=== PATIENT | female | born 1995 | race Caucasian/White ===

== ENCOUNTER 2017-07-31 18:44 | Outpatient (CLI) | payer OTHER | END 2017-07-31 18:45 | disposition critical access hospital (66) | LOC: EMS 18:44 | PROVIDERS: ATTEND Surgery | DX: R40.20 Unspecified coma (principal) | CPT/HCPCS: A0425; A0427 ==

== ENCOUNTER 2017-07-31 19:06 | Emergency (ER) | payer OTHER ==
[2017-07-31] MEDS ORDERED: methylPREDNISolone SUCCINATE 125 MG/2 ML VIAL IVP STA (20:15)
--- NOTE | 2017-07-31 21:00 | ED Physician Documentation ---
PD HPI SKIN - Stated complaint Stated Complaint: ALLERGIC REACTION - Chief complaint Chief Complaint: Resp - History obtained from History obtained from: Patient, Friend - History of Present Illness Timing - onset: Today Timing - details: Abrupt onset, Now resolved Location: Abdomen Quality / character: Itchy Improved by: Benadryl, Epi Associated symptoms: Dyspnea, Abd pain Contributing factors: Exposed to food Similar symptoms before: Work up / diagnostics Recently seen: Not recently seen - Additional information Additional information: Patient is a 22 year old female who was brought to the emergency department after having an allergic reaction. 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 Patient states that she became short of breath and passed out. EMS was called and treated the patient with epinephrine and benadryl. Upon my initial evaluation in the emergency department patient stated that she was feeling much better and her symptoms had resolved. Review of Systems Constitutional: denies: Fever, Chills Eyes: denies: Photophobia Ears: reports: Reviewed and negative Nose: denies: Rhinorrhea / runny nose, Congestion Throat: denies: Sore throat Cardiac: denies: Chest pain / pressure, Palpitations Respiratory: denies: Wheezing GI: reports: Nausea. denies: Vomiting, Constipation, Diarrhea : reports: Reviewed and negative Skin: denies: Rash, Lesions Musculoskeletal: reports: Reviewed and negative Neurologic: reports: Syncope, LOC Immunocompromised: denies: Immunocompromised PD PAST MEDICAL HISTORY - Past Surgical History Past Surgical History: No - Present Medications Home Medications: Ambulatory Orders Medication Instructions Recorded Confirmed Epinephrine [Epipen 2-Jr] 0.3 mg IJ ONCE PRN #2 auto.injct 07/31/17 predniSONE [Prednisone] 40 mg PO DAILY 5 Days tablet 07/31/17 - Allergies Allergies/Adverse Reactions: Allergies Allergy/AdvReac Type Severity Reaction Status Date / Time pineapple Allergy Severe Anaphylaxis Verified 07/31/17 19:13 - Social History Does the pt smoke?: No Smoking Status: Never smoker Does the pt drink ETOH?: Yes Does the pt have substance abuse?: No PD ED PE NORMAL - Vitals Vital signs reviewed: Yes - General General: Alert and oriented X 3, No acute distress - HEENT HEENT: Atraumatic, PERRL, Moist mucous membranes, Pharynx benign, Other (no soft palate swelling) - Neck Neck: Supple, no meningeal sign - Cardiac Cardiac: No murmur - Respiratory Respiratory: No respiratory distress, Clear bilaterally - Abdomen Abdomen: Soft, Non tender, Non distended - Derm Derm: Normal color, Warm and dry, No rash - Extremities Extremities: No deformity - Neuro Neuro: Alert and oriented X 3, No motor deficit, No sensory deficit, Normal speech Eye Opening: Spontaneous Motor: Obeys Commands Verbal: Oriented GCS Score: 15 - Psych Psych: Normal mood PD ED PE EXPANDED - Cardiac Cardiac: Tachy Results - Vitals Vitals: Vital Signs - 24 hr 07/31/17 07/31/17 07/31/17 19:09 20:00 20:40 Temperature 36.4 C L Heart Rate 120 H 78 76 Respiratory 24 15 14 Rate Blood Pressure 123/70 111/70 103/68 O2 Saturation 97 100 97 07/31/17 21:08 Temperature 36.8 C Heart Rate 80 Respiratory 18 Rate Blood Pressure 108/74 O2 Saturation 97 Oxygen O2 Source Room air PD MEDICAL DECISION MAKING - ED course Complexity details: reviewed old records, reviewed results, re-evaluated patient , considered differential, d/w patient ED course: Patient was seen and examined at bedside. Patient's symptoms had resolved. Patient was treated with solumedrol. Due to the fact that patient had received epinephrine patient was observed in the emergency department for 2 hours. Patient remained asymptomatic while she was here and was stable for discharge with outpatient follow up. Departure - Departure Disposition: 01 Home, Self Care Clinical Impression: Allergic reaction Condition: Stable Instructions: ED Allergic Reaction General Other Follow-Up: primary,care provider [Other] - Tomorrow Prescriptions: Epinephrine [Epipen 2-Jr] 0.3 mg IJ ONCE PRN #2 auto.injct PRN Reason: Allergy Symptoms predniSONE [Prednisone] 40 mg PO DAILY 5 Days tablet Comments: Your symptoms today were caused by an allergic reaction. In your situation they can be life threatening so it is important that you carry an epi pen with you. For lesser reactions you can take benadryl, pepcid and the prescribed steroids. You should follow up with your doctor and an pastry assistant to determine what all you are allergic to so that you can avoid them. You may return to the emergency department at any time for new, worsening or uncontrollable symtpoms. Forms: Activity restrictions Discharge Date/Time: 07/31/17 21:12
[2017-07-31 21:08] VITALS: BP 108/74
== END 2017-07-31 21:12 | disposition home or self-care (01) ==
LOC: ED 19:06
DX: T78.1XXA Other adverse food reactions, not elsewhere classified, initial encounter (principal); X58.XXXA Exposure to other specified factors, initial encounter; Z91.018 Allergy to other foods
CPT/HCPCS: 96374; 99284

== ENCOUNTER 2018-03-31 20:48 | Emergency (ER) | payer OTHER ==
[2018-03-31] MEDS ORDERED: predniSONE 20 MG TABLET PO STA (21:11)
--- NOTE | 2018-03-31 21:13 | ED Physician Documentation ---
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 Around 8:25 PM she ate some beef jerky that she did not know contained pineapple and relatively quickly developed a feeling of throat swelling and facial warmth. She injected her EpiPen at 830 and feels back to normal.) Review of Systems Constitutional: denies: Fever, Chills Cardiac: denies: Chest pain / pressure, Palpitations Respiratory: denies: Dyspnea, Cough PD PAST MEDICAL HISTORY - Past Surgical History Past Surgical History: No - Present Medications Home Medications: Ambulatory Orders Medication Instructions Recorded Confirmed Epinephrine [Epipen 2-Jr] 0.3 mg IJ ONCE PRN #2 auto.injct 07/31/17 EPINEPHrine [Epinephrine] 0.3 mg IJ ONCE PRN #2 auto.injct 03/31/18 predniSONE [Prednisone] 60 mg PO DAILY 5 Days #15 tablet 03/31/18 - Allergies Allergies/Adverse Reactions: Allergies Allergy/AdvReac Type Severity Reaction Status Date / Time pineapple Allergy Severe Anaphylaxis Verified 03/31/18 20:57 - Social History Does the pt smoke?: No Smoking Status: Never smoker Does the pt drink ETOH?: Yes Does the pt have substance abuse?: No PD ED PE NORMAL - Vitals Vital signs reviewed: Yes - General General: Alert and oriented X 3, No acute distress - HEENT HEENT: Pharynx benign - Neck Neck: Supple, no meningeal sign, No bony TTP - Cardiac Cardiac: RRR, No murmur - Respiratory Respiratory: No respiratory distress, Clear bilaterally - Derm Derm: No rash - Neuro Neuro: Alert and oriented X 3, Normal speech Results - Vitals Vitals: Vital Signs - 24 hr 03/31/18 20:50 Temperature 36.7 C Heart Rate 107 H Respiratory 18 Rate Blood Pressure 131/75 H O2 Saturation 98 Oxygen O2 Source Room air PD MEDICAL DECISION MAKING - ED course ED course: 22-year-old woman with mild anaphylaxis after epinephrine at home. She was observed for a couple of hours after dose of steroids here without any recurrent symptoms and her EpiPen's were refilled. - Sepsis Event Vital Signs: Vital Signs - 24 hr 03/31/18 20:50 Temperature 36.7 C Heart Rate 107 H Respiratory 18 Rate Blood Pressure 131/75 H O2 Saturation 98 Oxygen O2 Source Room air Departure - Departure Disposition: 01 Home, Self Care Clinical Impression: Allergic reaction Qualifiers: Encounter type: initial encounter Qualified Code(s): T78.40XA - Allergy, unspecified, initial encounter Condition: Good Record reviewed to determine appropriate education?: Yes Instructions: ED Anaphylaxis General Prescriptions: EPINEPHrine [Epinephrine] 0.3 mg IJ ONCE PRN #2 auto.injct PRN Reason: Allergy Symptoms predniSONE [Prednisone] 60 mg PO DAILY 5 Days #15 tablet Comments: Your blood pressure was elevated today on check into the emergency department. This does not mean that you have hypertension, it is a common phenomenon to come to the emergency department and have elevated blood pressure. I recommend that you see your primary care physician within the week to have it rechecked when you are feeling better. Forms: Activity restrictions
[2018-03-31 22:19] VITALS: BP 119/66
== END 2018-03-31 22:24 | disposition home or self-care (01) ==
LOC: ED 20:48
DX: T78.1XXA Other adverse food reactions, not elsewhere classified, initial encounter (principal); X58.XXXA Exposure to other specified factors, initial encounter; R22.9 Localized swelling, mass and lump, unspecified; R23.2 Flushing
CPT/HCPCS: 99283; J7512

== ENCOUNTER 2018-08-26 19:51 | Emergency (ER) | payer OTHER ==
[2018-08-26] MEDS ORDERED: DEXAMETHASONE 10 MG/ML VIAL PO STA (20:13)
[2018-08-26] MEDS ORDERED: diphenhydrAMINE 25 MG CAPSULE PO STA (20:13)
[2018-08-26] MEDS ORDERED: FAMOTIDINE 20 MG TABLET PO STA (20:14)
[2018-08-26] MEDS ORDERED: CHERRY SYRUP 10 ML UDC PO ONE (20:21)
--- NOTE | 2018-08-26 20:37 | ED Physician Documentation ---
PD HPI SKIN - Stated complaint Stated Complaint: ALLERGIC REACTION/EPI PEN USED - Chief complaint Chief Complaint: Allergic Rx - History obtained from History obtained from: Patient - History of Present Illness Timing - onset: How many hours ago Timing - duration: Hours (1) Timing - details: Abrupt onset Pain level max: 0 Pain level now: 0 Severity Comments: moderate Location: Neck Quality / character: Itchy, Swelling Improved by: Epi Associated symptoms: Other (difficulty swallowing) Contributing factors: Exposed to food (Pineapple) Review of Systems Ten Systems: 10 systems reviewed and negative Constitutional: reports: Reviewed and negative Eyes: reports: Reviewed and negative Ears: reports: Reviewed and negative Nose: reports: Reviewed and negative Throat: reports: Reviewed and negative Cardiac: reports: Reviewed and negative Respiratory: reports: Reviewed and negative GI: reports: Reviewed and negative : reports: Reviewed and negative Skin: reports: Reviewed and negative Musculoskeletal: reports: Reviewed and negative Neurologic: reports: Reviewed and negative Psychiatric: reports: Reviewed and negative Endocrine: reports: Reviewed and negative Immunocompromised: reports: Reviewed and negative PD PAST MEDICAL HISTORY - Past Medical History Past Medical History: Yes Cardiovascular: Other Respiratory: None Neuro: None Endocrine/Autoimmune: None GI: None 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 : None HEENT: None Psych: None Musculoskeletal: None Derm: None Other Past Medical History: palpatations - Past Surgical History Past Surgical History: No - Present Medications Home Medications: Ambulatory Orders Medication Instructions Recorded Confirmed EPINEPHrine [Epipen 2-Jr] 0.3 mg IJ ONCE PRN #2 auto.injct 07/31/17 EPINEPHrine [Epinephrine] 0.3 mg IJ ONCE PRN #2 auto.injct 03/31/18 predniSONE [Prednisone] 60 mg PO DAILY 5 Days #15 tablet 03/31/18 EPINEPHrine [Epinephrine] 0.3 mg IJ ONCE PRN #2 auto.injct 08/26/18 - Allergies Allergies/Adverse Reactions: Allergies Allergy/AdvReac Type Severity Reaction Status Date / Time pineapple Allergy Severe Anaphylaxis Verified 08/26/18 20:19 - Social History Does the pt smoke?: No Smoking Status: Never smoker Does the pt drink ETOH?: Yes Does the pt have substance abuse?: No - Immunizations Immunizations are current?: Yes - POLST Patient has POLST: No PD ED PE NORMAL - Vitals Vital signs reviewed: Yes - General General: Alert and oriented X 3, No acute distress - HEENT HEENT: PERRL - Neck Neck: Supple, no meningeal sign - Cardiac Cardiac: RRR, No murmur - Respiratory Respiratory: Clear bilaterally - Abdomen Abdomen: Normal bowel sounds, Soft, Non tender, Non distended - Derm Derm: Warm and dry - Extremities Extremities: No deformity - Neuro Neuro: Alert and oriented X 3 - Psych Psych: Normal mood, Normal affect Results - Vitals Vitals: Vital Signs - 24 hr 08/26/18 19:57 Temperature 36.5 C Heart Rate 103 H Respiratory 18 Rate Blood Pressure 134/55 H O2 Saturation 100 Oxygen O2 Source Room air PD MEDICAL DECISION MAKING - ED course Complexity details: re-evaluated patient, considered differential, d/w patient, d/w family ED course: 23-year-old female with allergic reaction to pineapple. Patient observed in the emergency department for 1 hour and asked to discharge home. Patient recommended to be observed for 4 hours but she prefers to discharge and will call 911 with any worsening symptoms. Patient verbalizes risks of discharging prematurely including or permanent disability. Patient given prescription for EpiPen. Departure - Departure Disposition: 01 Home, Self Care Clinical Impression: Allergic reaction Qualifiers: Encounter type: initial encounter Qualified Code(s): T78.40XA - Allergy, unspecified, initial encounter Condition: Stable Instructions: ED Allergic Reaction General Other Follow-Up: Zafar Hair ARNP [Primary Care Provider] - Prescriptions: EPINEPHrine [Epinephrine] 0.3 mg IJ ONCE PRN #2 auto.injct PRN Reason: Difficulty breathing
[2018-08-26 21:18] VITALS: BP 108/62
== END 2018-08-26 21:18 | disposition home or self-care (01) ==
LOC: ED 19:51
DX: T78.1XXA Other adverse food reactions, not elsewhere classified, initial encounter (principal); X58.XXXA Exposure to other specified factors, initial encounter; R22.1 Localized swelling, mass and lump, neck; R13.10 Dysphagia, unspecified
CPT/HCPCS: 99283; A9270

== ENCOUNTER 2018-12-27 03:20 | Emergency (ER) | payer OTHER ==
[2018-12-27 03:28] VITALS: BP 123/72
[2018-12-27] MEDS ORDERED: DEXAMETHASONE 10 MG/ML VIAL PO STA (03:44)
[2018-12-27] MEDS ORDERED: CHERRY SYRUP 10 ML UDC PO ONE (03:44)
[2018-12-27] MEDS ORDERED: HYDROcod/ACETAM 5/325 MG TABLET PO STA (03:44)
[2018-12-27] MEDS ORDERED: ONDANSETRON ODT 4 MG TABLET TL STA (03:44)
[2018-12-27] MEDS ORDERED: NAPROXEN 250 MG TABLET PO STA (03:44)
--- NOTE | 2018-12-27 03:44 | ED Physician Documentation ---
PD HPI URI - Stated complaint Stated Complaint: SORE THROAT/CHILLS - Chief complaint Chief Complaint: Heent - History obtained from History obtained from: Patient - History of Present Illness Timing - onset: How many days ago (2) Timing duration: Days (2) Timing details: Abrupt onset, Still present Associated symptoms: Fever, Chills, Sore throat, Swollen nodes, Dry cough, Other (body aches). No: Dyspnea, NVD Contributing factors: Sick contact (coworkers with similar symptoms) Improves by: Other (has not taken any meds for it) Similar symptoms before: Has not had sx before Recently seen: Not recently seen Review of Systems Constitutional: reports: Fever, Chills, Myalgias Nose: reports: Congestion. denies: Rhinorrhea / runny nose, Sinus pressure / pain Throat: reports: Sore throat. denies: Oral lesions / sores, Swollen tonsils Cardiac: denies: Chest pain / pressure Respiratory: reports: Dyspnea, Cough. denies: Wheezing GI: reports: Nausea, Diarrhea (2 days ago). 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 : None HEENT: None Psych: None Musculoskeletal: None Derm: None - Past Surgical History Past Surgical History: No - Present Medications Home Medications: Ambulatory Orders Medication Instructions Recorded Confirmed EPINEPHrine [Epipen 2-Jr] 0.3 mg IJ ONCE PRN #2 auto.injct 07/31/17 EPINEPHrine [Epinephrine] 0.3 mg IJ ONCE PRN #2 auto.injct 03/31/18 predniSONE [Prednisone] 60 mg PO DAILY 5 Days #15 tablet 03/31/18 EPINEPHrine [Epinephrine] 0.3 mg IJ ONCE PRN #2 auto.injct 08/26/18 Naproxen 375 mg PO BID #20 tablet 12/27/18 Ondansetron Odt [Zofran] 4 mg TL Q6H PRN #10 tablet 12/27/18 Tramadol HCl 50 mg PO Q6H PRN #15 tablet 12/27/18 dexAMETHasone [Decadron] 4 mg PO DAILY #5 tablet 12/27/18 - Allergies Allergies/Adverse Reactions: Allergies Allergy/AdvReac Type Severity Reaction Status Date / Time pineapple Allergy Severe Anaphylaxis Verified 12/27/18 03:27 - Social History Does the pt smoke?: No Smoking Status: Never smoker Does the pt drink ETOH?: Yes Does the pt have substance abuse?: No - Immunizations Immunizations are current?: Yes - POLST Patient has POLST: No PD ED PE NORMAL - Vitals Vital signs reviewed: Yes - General General: Alert and oriented X 3, Well developed/nourished - HEENT HEENT: Moist mucous membranes, Pharynx benign - Neck Neck: Supple, no meningeal sign. No: No adenopathy (mild right anterior neck) - Cardiac Cardiac: RRR, No murmur - Respiratory Respiratory: Clear bilaterally - Abdomen Abdomen: Soft, Non tender - Derm Derm: Normal color, Warm and dry - Neuro Neuro: Alert and oriented X 3, No motor deficit, Normal speech Results - Vitals Vitals: Vital Signs - 24 hr 12/27/18 03:26 Temperature 36.3 C L Heart Rate 119 H Respiratory 16 Rate Blood Pressure 123/72 O2 Saturation 100 Oxygen O2 Source Room air - Labs Labs: Laboratory Tests 12/27/18 03:20 Group A Strep Rapid Negative Departure - Departure Disposition: 01 Home, Self Care Clinical Impression: Upper respiratory infection Qualifiers: URI type: unspecified URI Qualified Code(s): J06.9 - Acute upper respiratory infection, unspecified Condition: Stable Record reviewed to determine appropriate education?: Yes Health Concerns: sore throat/ fever Plan of Treatment: anti-inflammatories and pain meds Care Goals: improve symptoms Assessment: Presume viral URI Instructions: ED Upper Resp Infec No Abx Tx Follow-Up: Zafar Hair ARNP [Primary Care Provider] - Prescriptions: dexAMETHasone [Decadron] 4 mg PO DAILY #5 tablet Naproxen 375 mg PO BID #20 tablet Ondansetron Odt [Zofran] 4 mg TL Q6H PRN #10 tablet PRN Reason: Nausea / Vomiting Tramadol HCl 50 mg PO Q6H PRN #15 tablet PRN Reason: Pain Comments: Rapid strep test is negative. Presume a viral illness. Will call you if the cultures shows bacterial growth in the next 2 to 3 days. Meanwhile use some anti-inflammatory such as naproxen. Add Decadron steroid for inflammation as well. Ondansetron if needed for nausea. Tylenol and/or tramadol if needed for pains. Stay well-hydrated. Presume will be you will be ill for 5 to 7 days but hopefully less. Forms: Activity restrictions
== END 2018-12-27 04:10 | disposition home or self-care (01) ==
LOC: ED 03:20
DX: J06.9 Acute upper respiratory infection, unspecified (principal)
CPT/HCPCS: 87070; 87430; 99283; A9270; Q0162

== ENCOUNTER 2019-05-15 09:02 | Emergency (ER) | payer OTHER ==
[2019-05-15 10:41] LABS: BILIRUBIN,URINE NEGATIVE (NEGATIVE); GLUCOSE, URINE (UA) NEGATIVE (NEGATIVE); KETONES,URINE (UA) NEGATIVE (NEGATIVE); LEUKOCYTE ESTERASE, URINE NEGATIVE (NEGATIVE); NITRITE,URINE NEGATIVE (NEGATIVE); OCCULT BLOOD,URINE TRACE-LYSE (NEGATIVE); PROTEIN,URINE NEGATIVE (NEGATIVE); UROBILINOGEN,URINE 0.2 (NORMAL) E.U./dL (NORMAL)
[2019-05-15 10:43] LABS: BASOPHILS # (AUTO) 0.1 10^3/uL (0.0-0.1); BASOPHILS % (AUTO) 0.8 %; EOSINOPHILS % (AUTO) 0.4 %; HGB - HEMOGLOBIN 13.2 g/dL (12.0-16.0); LYMPHOCYTES % (AUTO) 23.4 %; MEAN CORPUSCULAR HEMOGLOBIN 30.7 pg (27.0-31.0); MEAN CORPUSCULAR HGB CONC 32.9 g/dL (32.0-36.0); MEAN CORPUSCULAR VOLUME 93.3 fL (81.0-99.0); MEAN PLATELET VOLUME 11.3 fL (7.9-10.8); MONOCYTES # (AUTO) 0.6 10^3/uL (0.0-1.0); MONOCYTES % (AUTO) 6.7 %; NEUTROPHILS # (AUTO) 5.9 10^3/uL (1.5-6.6); NEUTROPHILS % (AUTO) 68.3 %; PLT - PLATELET COUNT 283 10^3/uL (130-450); RED CELL DISTRIBUTION WIDTH 12.3 % (12.0-15.0); WHITE BLOOD COUNT 8.6 x10^3/uL (4.8-10.8)
[2019-05-15 10:43] LABS: CLARITY,URINE CLEAR (CLEAR); HCG UR QUAL NEGATIVE
--- NOTE | 2019-05-15 10:48 | ED Physician Documentation ---
History of Present Illness - Stated complaint Stated Complaint: N/V - Chief complaint Chief Complaint: Neuro - History obtained from History obtained from: Patient - History of Present Illness Timing: How many days ago (several) Pain level max: 1 Pain level now: 1 - Additonal information Additional information: 23-year-old female presents to the emergency department stating that she felt lightheaded earlier today. Was seen here a few days ago after starting venlafaxine and had vomiting x4. Diagnosed with possible vertigo. She took meclizine this morning. She was nauseated this morning as well. States she has a mild sore throat as well. No fevers. No nasal congestion. Denies any possibility of . No cough. No abdominal pain. She is now off the venlafaxine Review of Systems Constitutional: denies: Fever, Chills Ears: denies: Ear pain Nose: denies: Rhinorrhea / runny nose, Congestion Throat: reports: Sore throat Respiratory: denies: Cough GI: reports: Nausea. 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 : None HEENT: None Psych: None Musculoskeletal: None Derm: None - Past Surgical History Past Surgical History: No - Present Medications Home Medications: Ambulatory Orders Medication Instructions Recorded Confirmed EPINEPHrine [Epipen 2-Jr] 0.3 mg IJ ONCE PRN #2 auto.injct 07/31/17 EPINEPHrine [Epinephrine] 0.3 mg IJ ONCE PRN #2 auto.injct 03/31/18 predniSONE [Prednisone] 60 mg PO DAILY 5 Days #15 tablet 03/31/18 EPINEPHrine [Epinephrine] 0.3 mg IJ ONCE PRN #2 auto.injct 08/26/18 Naproxen 375 mg PO BID #20 tablet 12/27/18 Ondansetron Odt [Zofran] 4 mg TL Q6H PRN #10 tablet 12/27/18 Tramadol HCl 50 mg PO Q6H PRN #15 tablet 12/27/18 dexAMETHasone [Decadron] 4 mg PO DAILY #5 tablet 12/27/18 Meclizine [Antivert] 12.5 mg PO Q6H PRN #20 tablet 05/12/19 Ondansetron Odt [Zofran] 4 mg TL Q6H PRN #10 tablet 05/15/19 - Allergies Allergies/Adverse Reactions: Allergies Allergy/AdvReac Type Severity Reaction Status Date / Time pineapple Allergy Severe Anaphylaxis Verified 05/12/19 06:30 - Social History Does the pt smoke?: No Smoking Status: Never smoker Does the pt drink ETOH?: Yes Does the pt have substance abuse?: No - Immunizations Immunizations are current?: Yes - POLST Patient has POLST: No PD ED PE NORMAL - Vitals Vital signs reviewed: Yes - General General: Alert and oriented X 3, No acute distress - HEENT HEENT: PERRL, Moist mucous membranes, Pharynx benign - Neck Neck: Supple, no meningeal sign, No adenopathy - Cardiac Cardiac: RRR, Strong equal pulses - Respiratory Respiratory: No respiratory distress, Clear bilaterally - Abdomen Abdomen: Soft, Non tender, Non distended - Derm Derm: Warm and dry, No rash - Extremities Extremities: No edema - Neuro Neuro: Alert and oriented X 3, 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 2-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0 Kleberg # (Auto) 0.6 Eos # (Auto) 0.0 Baso # (Auto) 0.1 Absolute Nucleated RBC 0.00 Nucleated RBC % 0.0 Sodium 138 Potassium 3.7 Chloride 104 Carbon Dioxide 25 Anion Gap 9.0 BUN 10 Creatinine 0.7 Estimated GFR (MDRD) 105 Glucose 92 Calcium 8.9 Total Bilirubin 0.5 AST 14 ALT 14 Alkaline Phosphatase 44 Total Protein 8.2 Albumin 4.6 Globulin 3.6 Albumin/Globulin Ratio 1.3 Lipase 20 L Urine Color Urine Clarity Urine pH Ur Specific [place] Urine Protein Urine Glucose (UA) Urine Ketones Urine Occult Blood Urine Nitrite Urine Bilirubin Urine Urobilinogen Ur Leukocyte Esterase Ur Microscopic Review Urine Culture Comments Urine HCG, Qual Infectious Kleberg Assay NEGATIVE Group A Strep Rapid 05/15/19 05/15/19 10:27 11:30 WBC RBC Hgb Hct MCV MCH MCHC RDW Plt Count MPV Neut # (Auto) Lymph # (Auto) Kleberg # (Auto) Eos # (Auto) Baso # (Auto) Absolute Nucleated RBC Nucleated RBC % Sodium Potassium Chloride Carbon Dioxide Anion Gap BUN Creatinine Estimated GFR (MDRD) Glucose Calcium Total Bilirubin AST ALT Alkaline Phosphatase Total Protein Albumin Globulin Albumin/Globulin Ratio Lipase Urine Color YELLOW Urine Clarity CLEAR Urine pH 6.0 Ur Specific [place] 1.025 Urine Protein NEGATIVE Urine Glucose (UA) NEGATIVE Urine Ketones NEGATIVE Urine Occult Blood TRACE-LYSE Urine Nitrite NEGATIVE Urine Bilirubin NEGATIVE Urine Urobilinogen 0.2 (NORMAL) Ur Leukocyte Esterase NEGATIVE Ur Microscopic Review NOT INDICATED Urine Culture Comments NOT INDICATED Urine HCG, Qual NEGATIVE Infectious Kleberg Assay Group A Strep Rapid Negative PD MEDICAL DECISION MAKING - ED course Complexity details: reviewed old records, considered differential, d/w patient, d/w family ED course: No acute laboratory abnormalities. Likely viral syndrome. She is well- appearing, nontoxic. We will have her follow-up with her doctor for further care. Patient counseled regarding signs and symptoms for which I believe and urgent re-evaluation would be necessary. Patient with good understanding of and agreement to plan and is comfortable going home at this time This document was made in part using voice recognition software. While efforts are made to proofread this document, sound alike and grammatical errors may occur. No evidence of vertigo at this time Departure - Departure Disposition: 01 Home, Self Care Clinical Impression: Viral syndrome Condition: Good Instructions: ED Viral Syndrome Follow-Up: Zafar Hair ARNP [Primary Care Provider] - Within 1 week Prescriptions: Ondansetron Odt [Zofran] 4 mg TL Q6H PRN #10 tablet PRN Reason: Nausea / Vomiting Comments: Your testing is normal today. Follow-up with your doctor for further care. Return if you worsen. Drink plenty of fluids and rest. Forms: Activity restrictions Discharge Date/Time: 05/15/19 12:15
[2019-05-15 11:01] LABS: ALBUMIN 4.6 g/dL (3.2-5.5); ALBUMIN/GLOBULIN RATIO 1.3 (1.0-2.2); BILIRUBIN,TOTAL 0.5 mg/dL (0.2-1.0); CALCIUM 8.9 mg/dL (8.5-10.3); CREATININE 0.7 mg/dL (0.4-1.0); TOTAL PROTEIN 8.2 g/dL (6.7-8.2)
[2019-05-15 11:30] VITALS: BP 129/76
== END 2019-05-15 12:15 | disposition home or self-care (01) ==
LOC: ED 09:02
DX: B34.9 Viral infection, unspecified (principal)
CPT/HCPCS: 36415; 80053; 81001; 81003; 81025; 83690; 85025; 86308; 87070; 87077; 87086; 87430; 99283; 99284

== ENCOUNTER 2019-07-16 09:30 | Emergency (ER) | payer OTHER ==
--- NOTE | 2019-07-16 10:28 | ED Physician Documentation ---
PD HPI NVD - Stated complaint Stated Complaint: D/V - Chief complaint Chief Complaint: Abd Pain - History obtained from History obtained from: Patient - History of Present Illness Timing - onset: Last night (about midnight) Timing - duration: Hours (she ate dinner at [employer] about 9 pm and got sick at midnight. Had had some mild nasal congestion and cough earlier in the day. No fevers nor aches.) Timing - details: Abrupt onset, Still present Associated symptoms: Abdominal pain (intermittent crampy mid abd.), Dizzy (some lightheaded this morning.), Loss of appetite. No: Fever Contributing factors: Bad food (she thinks it was [employer] food she ate 3 hours prior.). No: Sick contact, Travel, Recent antibiotics Improved by: No: Vomiting Worsened by: Eating Similar symptoms before: Has not had sx before Recently seen: Not recently seen Review of Systems Constitutional: reports: Myalgias. denies: Fever, Chills Nose: reports: Congestion. denies: Rhinorrhea / runny nose Throat: denies: Sore throat Respiratory: reports: Cough (mild) GI: reports: Nausea, Vomiting (many times overnight), Diarrhea. denies: Hematemesis, Bloody / black stool : denies: Dysuria, Frequency Neurologic: reports: Generalized weakness, Headache. denies: Near syncope, Altered mental status PD PAST MEDICAL HISTORY - Past Medical History Cardiovascular: Other Respiratory: None Neuro: None Endocrine/Autoimmune: None GI: None [employer] REPRESENTATIVE: None : None HEENT: None Psych: None Musculoskeletal: None Derm: None - Past Surgical History Past Surgical History: No - Present Medications Home Medications: Ambulatory Orders Medication Instructions Recorded Confirmed EPINEPHrine [Epipen 2-Jr] 0.3 mg IJ ONCE PRN #2 auto.injct 07/31/17 EPINEPHrine [Epinephrine] 0.3 mg IJ ONCE PRN #2 auto.injct 03/31/18 predniSONE [Prednisone] 60 mg PO DAILY 5 Days #15 tablet 03/31/18 EPINEPHrine [Epinephrine] 0.3 mg IJ ONCE PRN #2 auto.injct 08/26/18 Naproxen 375 mg PO BID #20 tablet 12/27/18 Ondansetron Odt [Zofran] 4 mg TL Q6H PRN #10 tablet 12/27/18 Tramadol HCl 50 mg PO Q6H PRN #15 tablet 12/27/18 dexAMETHasone [Decadron] 4 mg PO DAILY #5 tablet 12/27/18 Meclizine [Antivert] 12.5 mg PO Q6H PRN #20 tablet 05/12/19 Ondansetron Odt [Zofran] 4 mg TL Q6H PRN #10 tablet 05/15/19 Diphenoxylate/Atropine [Lomotil] 1 each PO QID PRN #12 tablet 07/16/19 Ondansetron Odt [Zofran] 4 mg TL Q6H PRN #10 tablet 07/16/19 - Allergies Allergies/Adverse Reactions: Allergies Allergy/AdvReac Type Severity Reaction Status Date / Time pineapple Allergy Severe Anaphylaxis Verified 07/16/19 09:40 - Social History Does the pt smoke?: No Smoking Status: Never smoker Does the pt drink ETOH?: Yes Does the pt have substance abuse?: No - Immunizations Immunizations are current?: Yes - POLST Patient has POLST: No PD ED PE NORMAL - Vitals Vital signs reviewed: Yes - General General: Alert and oriented X 3, No acute distress, Well developed/nourished - HEENT HEENT: Ears normal, Pharynx benign. No: Moist mucous membranes - Neck Neck: Supple, no meningeal sign, No adenopathy - Cardiac Cardiac: RRR, No murmur - Respiratory Respiratory: Clear bilaterally - Abdomen Abdomen: Normal bowel sounds, Soft, Non tender, Non distended, No organomegaly - Back Back: No CVA TTP - Derm Derm: Normal color, Warm and dry - Extremities Extremities: No tenderness to palpate, No edema, No calf tenderness / cord - Neuro Neuro: Alert and oriented X 3, No motor deficit, Normal speech Results - Vitals Vitals: Vital Signs - 24 hr 07/16/19 07/16/19 07/16/19 09:40 10:36 11:30 Temperature 36.9 C Heart Rate 132 H 130 H 105 H Respiratory 14 18 18 Rate Blood Pressure 114/74 118/79 107/65 O2 Saturation 100 100 100 07/16/19 12:39 Temperature Heart Rate 100 Respiratory 18 Rate Blood Pressure 91/58 L O2 Saturation 100 Oxygen O2 Source Room air - Labs Labs: Laboratory Tests 07/16/19 10:31 Sodium 138 Potassium 3.9 Chloride 105 Carbon Dioxide 19 L Anion Gap 14.0 H BUN 10 Creatinine 0.9 Estimated GFR (MDRD) 78 L Glucose 108 H Calcium 9.1 Total Bilirubin 0.5 AST 21 ALT 18 Alkaline Phosphatase 50 Total Protein 8.6 H Albumin 4.6 Globulin 4.0 Albumin/Globulin Ratio 1.1 Lipase 29 PD MEDICAL DECISION MAKING - ED course Complexity details: re-evaluated patient (feels much better with IV fluids and meds. ), considered differential, d/w patient Departure - Departure Disposition: 01 Home, Self Care Clinical Impression: Nausea vomiting and diarrhea Condition: Stable Record reviewed to determine appropriate education?: Yes Instructions: ED Food Poison Or Gastroenteritis Follow-Up: Zafar Hair ARNP [Primary Care Provider] - Prescriptions: Diphenoxylate/Atropine [Lomotil] 1 each PO QID PRN #12 tablet PRN Reason: Diarrhea Ondansetron Odt [Zofran] 4 mg TL Q6H PRN #10 tablet PRN Reason: Nausea / Vomiting Comments: Small frequent fluids. [place] food initially and progress as tolerated. Ondansetron as needed for nausea every 4-6 hours. Lomotil for diarrhea as needed every 6 hours. This is likely either viral intestinal infection or food related such as food poisoning. Both of these typically last for a day sometimes 2 and then are better. Recheck if it persists beyond that. Forms: Activity restrictions Discharge Date/Time: 07/16/19 12:39
[2019-07-16] MEDS ORDERED: ONDANSETRON 4 MG/2 ML VIAL IVP STA (10:39)
[2019-07-16] MEDS ORDERED: DIPHENOX/ATROPINE 2.5/0.025 MG TABLET PO STA (10:39)
[2019-07-16] MEDS ORDERED: KETOROLAC 30 MG/ML VIAL IVP STA (10:39)
[2019-07-16] MEDS ORDERED: SODIUM CHLORIDE 0.9% 1,000 ML IV ONE (10:39)
[2019-07-16 10:53] LABS: ALBUMIN 4.6 g/dL (3.2-5.5); ALBUMIN/GLOBULIN RATIO 1.1 (1.0-2.2); BILIRUBIN,TOTAL 0.5 mg/dL (0.2-1.0); CALCIUM 9.1 mg/dL (8.5-10.3); CREATININE 0.9 mg/dL (0.4-1.0); TOTAL PROTEIN 8.6 g/dL (6.7-8.2)
[2019-07-16 12:39] VITALS: BP 91/58
== END 2019-07-16 12:39 | disposition home or self-care (01) ==
LOC: ED 09:30
DX: R11.2 Nausea with vomiting, unspecified (principal); R19.7 Diarrhea, unspecified
CPT/HCPCS: 36415; 80053; 83690; 96361; 96374; 99283; 99284; A9270